=== PATIENT | female | born 1990 | race Two or more races ===

== ENCOUNTER 2020-01-24 09:47 | Inpatient (IN) | payer OTHER ==
[2020-01-26] MEDS ORDERED: Sodium Chloride 0.9% 10 ML Syringe FLUSH PRN (19:16)
[2020-01-26] MEDS ORDERED: Nalbuphine 10 MG/1 ML Vial IVPUSH PRN (19:16)
[2020-01-26] MEDS ORDERED: Ondansetron 4 MG/2 ML SDV IVPUSH PRN (19:16)
[2020-01-26] MEDS ORDERED: Calcium Carbonate 500 MG Tab.Chew PO PRN (19:16)
[2020-01-26] MEDS ORDERED: Acetaminophen 325 MG Tab PO PRN (19:16)
[2020-01-26] MEDS ORDERED: Oxytocin/Lactated Ringers 10 UNIT/1,000 ML BAG IV SCH (19:30)
[2020-01-26] MEDS ORDERED: Ampicillin 2 GM in Sodium Chloride 0.9% 100 ML IV ONE (20:00)
--- NOTE | 2020-01-26 20:10 | PCM.LDHP ---
L&D History of Present Illness - General Date of Service: 01/26/20 Admit Problem/Dx: Patient Status Order with Admit Dx/Problem 01/26/20 19:16 Patient Status [ADT] Routine Admission Diagnosis/Problem Admission Diagnosis/Problem Source of Information: Patient - History of Present Illness Introduction:: 29 year old at 40w2 here for induction of labor. PNC with myself without complications GBS positive - Related Data Allergies/Adverse Reactions: Allergies Allergy/AdvReac Type Severity Reaction Status Date / Time No Known Allergies Allergy Verified 01/26/20 19:45 Past Medical History - Past Health History Medical/Surgical History: Denies Medical/Surgical History H&P Review of Systems - Review of Systems: Review Of Systems: See Below General: Reports: No Symptoms HEENT: Reports: No Symptoms Pulmonary: Reports: No Symptoms Cardiovascular: Reports: No Symptoms Gastrointestinal: Reports: No Symptoms Genitourinary: Reports: No Symptoms Musculoskeletal: Reports: No Symptoms Skin: Reports: No Symptoms Psychiatric: Reports: No Symptoms Neurological: Reports: No Symptoms Hematologic/Lymphatic: Reports: No Symptoms Immunologic: Reports: No Symptoms L&D Exam - Exam Exam: See Below - Vital Signs Weight: 116.891 kg - OB Specific Contraction Intensity: Irritability Movement: Active Heart Tones: Present Heart Tones per Min: 145 Heart Rate (FHR) Variability: Moderate (6-25 bmp) Presentation: Vertex - Dodd Score Dodd Score Cervix Position: Posterior Dodd Score Consistency: Soft Ddod Score Effacement: 51-70% Dodd Score Dilation: 3-4 cm Dodd Score Infant's Station: -1 ,0 Dodd Score Total: 8 - Exam General: Alert, Oriented HEENT: PERRLA, Conjunctiva Clear, EACs Clear, EOMI, Hearing Intact, Mucosa Moist & [place], Nares Patent, Normal Nasal Septum, Posterior Pharynx Clear, TMs Clear Neck: Supple, Trachea Midline Lungs: Clear to Auscultation, Normal Respiratory Effort Cardiovascular: Regular Rate, Regular Rhythm GI/Abdominal Exam: Normal Bowel Sounds, Soft, Non-Tender, No Organomegaly, No Distention, No Abnormal Bruit, No Mass, Pelvis Stable Back Exam: Normal Inspection, Full Range of Motion Extremities: Normal Inspection, Normal Range of Motion, Non-Tender, No Pedal Edema, Normal Capillary Refill Skin: Warm, Dry, Intact Neurological: Cranial Nerves Intact, Reflexes Equal Bilateral Psychiatric: Alert, Normal Affect, Normal Mood - Patient Data Lab Results Last 24 hrs: Laboratory Results - last 24 hr 01/26/20 Range/Units 19:31 WBC 11.70 H (3.98-10.04) K/mm3 RBC 4.24 (3.98-5.22) M/mm3 Hgb 13.3 (11.2-15.7) gm/dl Hct 37.4 (34.1-44.9) % MCV 88.2 (79.4-94.8) fl MCH 31.4 (25.6-32.2) pg MCHC 35.6 H (32.2-35.5) g/dl RDW Std Deviation 43.2 (36.4-46.3) fL Plt Count 185 (182-369) K/mm3 MPV 10.7 (9.4-12.3) fl Neut % (Auto) 78.7 H (34.0-71.1) % Lymph % (Auto) 14.4 L (19.3-51.7) % [place] % (Auto) 5.8 (4.7-12.5) % Eos % (Auto) 0.8 (0.7-5.8) Baso % (Auto) 0.3 (0.1-1.2) % Neut # (Auto) 9.22 H (1.56-6.13) K/mm3 Lymph # (Auto) 1.68 (1.18-3.74) K/mm3 [place] # (Auto) 0.68 H (0.24-0.36) K/mm3 Eos # (Auto) 0.09 (0.04-0.36) K/mm3 Baso # (Auto) 0.03 (0.01-0.08) K/mm3 Result Diagrams: 01/26/20 19:31 Problem List Initiated/Reviewed/Updated: Yes Orders Last 24hrs: Active Orders 24 hr Category Date Time Status Patient Status [ADT] Routine ADT 01/26/20 19:16 Active Activity as Tolerated [RC] PFP Care 01/26/20 19:16 Active Communication Order [RC] ASDIRECTED Care 01/26/20 19:16 Active Heart Tones [RC] ASDIRECTED Care 01/26/20 19:17 Active Non Stress Test [RC] PER UNIT ROUTINE Care 01/26/20 19:16 Active Notify Provider [RC] PFP Care 01/26/20 19:16 Active Notify Provider [RC] PRN Care 01/26/20 19:16 Active Peripheral IV Care [RC] . DIRECTED Care 01/26/20 19:17 Active Vital Signs [RC] PER UNIT ROUTINE Care 01/26/20 19:16 Active Regular Diet [DIET] Diet 01/27/20 Breakfast Active CORONAVIRUS COVID-19 CIPRIANO [MOLEC] Stat Lab 01/26/20 19:28 Received RAPID PLASMA REAGIN,RPR [CHEM] Routine Lab 01/26/20 19:31 Received TYPE AND SCREEN [BBK] Stat Lab 01/26/20 19:31 Received Acetaminophen [TylenoL] Med 01/26/20 19:16 Active 650 mg PO Q4H PRN Ampicillin 1 gm Med 01/27/20 00:00 Active Sodium Chloride 0.9% [Normal Saline] 100 ml IV Q4H Ampicillin 2 gm Med 01/26/20 20:00 Active Sodium Chloride 0.9% [Normal Saline] 100 ml IV ONETIME Calcium Carbonate [Tums] Med 01/26/20 19:16 Active 1,000 mg PO Q2H PRN Lactated Ringers [Ringers, Lactated] 1,000 ml Med 01/26/20 19:30 Active IV ASDIRECTED Nalbuphine [Nubain] Med 01/26/20 19:16 Active 10 mg IVPUSH Q2H PRN Ondansetron [Zofran] Med 01/26/20 19:16 Active 4 mg IVPUSH Q4H PRN Oxytocin/Lactated Ringers [Pitocin in LR 10 Units/1,000 Med 01/26/20 19:30 Active ML] 10 unit in 1,000 ml IV .CONTINUOUS Oxytocin/Lactated Ringers [Pitocin in LR 10 Units/1,000 Med 01/26/20 19:30 Active ML] 10 unit in 1,000 ml IV TITRATE Sodium Chloride 0.9% [Saline Flush] Med 01/26/20 19:16 Active 10 ml FLUSH ASDIRECTED PRN Electronic Heart Tones Ext w TOCO [WOMSER] Oth 01/26/20 19:16 Ordered Routine Electronic Heart Tones Internal [WOMSER] Per Unit Oth 01/26/20 19:16 Ordered Routine Peripheral IV Insertion Adult [OM.PC] Routine Oth 01/26/20 19:16 Ordered Resuscitation Status Routine Resus Stat 01/26/20 19:16 Ordered Medication Orders Acetaminophen (Tylenol) 650 mg PO Q4H PRN PRN Reason: Pain (Mild 1-3) and fever Calcium Carbonate/Glycine (Tums) 1,000 mg PO Q2H PRN PRN Reason: Indigestion Ampicillin Sodium 2 gm/ Sodium (Chloride) 100 mls @ 200 mls/hr IV ONETIME ONE Stop: 01/26/20 20:29 Ampicillin Sodium 1 gm/ Sodium (Chloride) 100 mls @ 200 mls/hr IV Q4H SHEILA Oxytocin/Lactated Ringer's (Pitocin In Lr 10 Units/1,000 Ml) 10 unit in 1,000 mls @ 12 mls/hr IV TITRATE SHEILA; Protocol Oxytocin/Lactated Ringer's (Pitocin In Lr 10 Units/1,000 Ml) 10 unit in 1,000 mls @ 500 mls/hr IV .CONTINUOUS SHEILA Lactated Ringer's (Ringers, Lactated) 1,000 mls @ 100 mls/hr IV ASDIRECTED SHEILA Nalbuphine HCl (Nubain) 10 mg IVPUSH Q2H PRN PRN Reason: Pain Ondansetron HCl (Zofran) 4 mg IVPUSH Q4H PRN PRN Reason: Nausea/Vomiting Sodium Chloride (Saline Flush) 10 ml FLUSH ASDIRECTED PRN PRN Reason: Keep Vein Open Assessment/Plan Comment:: Term induction. GBS positive. 4/80/0. AROM clear fluid. Anticipate unless otherwise indicated. Pitocin to be initiated.
[2020-01-26] MEDS: Lactated Ringers 1,000 ML IV SCH ×3 (20:14→23:09)
[2020-01-26] MEDS: Oxytocin/Lactated Ringers 10 UNIT/1,000 ML BAG IV SCH (20:20)
[2020-01-26] MEDS ORDERED: ePHEDrine 50 MG/ML SDV IVPUSH PRN (21:31)
[2020-01-26] MEDS ORDERED: fentaNYL 100 MCG/2 ML SDV EPIDUR PRN (21:31)
[2020-01-26] MEDS ORDERED: diphenhydrAMINE 50 MG/ML SDV IVPUSH PRN (21:31)
--- NOTE | 2020-01-26 21:51 | PCM.PREANE ---
Preanesthetic Assessment - Procedure Proposed Procedure: Continuous labor epidural - Anesthesia/Transfusion/Family Hx Anesthesia History: Prior Anesthesia Without Reaction Transfusion History: No Prior Transfusion(s) - Review of Systems General: No Symptoms Pulmonary: No Symptoms Cardiovascular: No Symptoms Gastrointestinal: No Symptoms Neurological: No Symptoms Other: Reports: None - Physical Assessment Height: 1.57 m Weight: 116.891 kg ASA Class: 3 (Morbid obesity) Mental Status: Alert & Oriented x3 Airway Class: Mallampati = 2 Dentition: Reports: Normal Dentition Thyro-Mental Finger Breadths: 3 Mouth Opening Finger Breadths: 3 ROM/Head Extension: Full Lungs: Clear to Auscultation, Normal Respiratory Effort Cardiovascular: Regular Rate, Regular Rhythm - Lab Values: Laboratory Last Values WBC 11.70 K/mm3 (3.98-10.04) H 01/26/20 19:31 RBC 4.24 M/mm3 (3.98-5.22) 01/26/20 19:31 Hgb 13.3 gm/dl (11.2-15.7) 01/26/20 19:31 Hct 37.4 % (34.1-44.9) 01/26/20 19:31 MCV 88.2 fl (79.4-94.8) 01/26/20 19:31 MCH 31.4 pg (25.6-32.2) 01/26/20 19:31 MCHC 35.6 g/dl (32.2-35.5) H 01/26/20 19:31 RDW Std Deviation 43.2 fL (36.4-46.3) 01/26/20 19:31 Plt Count 185 K/mm3 (182-369) 01/26/20 19:31 MPV 10.7 fl (9.4-12.3) 01/26/20 19:31 Neut % (Auto) 78.7 % (34.0-71.1) H 01/26/20 19:31 Lymph % (Auto) 14.4 % (19.3-51.7) L 01/26/20 19:31 [place] % (Auto) 5.8 % (4.7-12.5) 01/26/20 19:31 Eos % (Auto) 0.8 (0.7-5.8) 01/26/20 19:31 Baso % (Auto) 0.3 % (0.1-1.2) 01/26/20 19:31 Neut # (Auto) 9.22 K/mm3 (1.56-6.13) H 01/26/20 19:31 Lymph # (Auto) 1.68 K/mm3 (1.18-3.74) 01/26/20 19:31 [place] # (Auto) 0.68 K/mm3 (0.24-0.36) H 01/26/20 19:31 Eos # (Auto) 0.09 K/mm3 (0.04-0.36) 01/26/20 19:31 Baso # (Auto) 0.03 K/mm3 (0.01-0.08) 01/26/20 19:31 SARS-CoV-2 RNA (CIPRIANO) Negative (NEGATIVE) 01/26/20 19:28 Blood Type B POSITIVE 01/26/20 19:31 Gel Antibody Screen Negative 01/26/20 19:31 - Allergies Allergies/Adverse Reactions: Allergies Allergy/AdvReac Type Severity Reaction Status Date / Time No Known Allergies Allergy Verified 01/26/20 19:45 - Acknowledgements Anesthesia Type Planned: Epidural Pt an Appropriate Candidate for the Planned Anesthesia: Yes Alternatives and Risks of Anesthesia Discussed w Pt/Guardian: Yes Pt/Guardian Understands and Agrees with Anesthesia Plan: Yes PreAnesthesia Questionnaire - Past Health History Medical/Surgical History: Denies Medical/Surgical History Genitourinary History: Reports: STD SAMPLE TESTER History: Reports: - Past Surgical History HEENT Surgical History: Reports: Oral Surgery - CURRENT (IN HOUSE) MEDS Current Meds: Current Medications Acetaminophen (Tylenol) 650 mg PO Q4H PRN PRN Reason: Pain (Mild 1-3) and fever Calcium Carbonate/Glycine (Tums) 1,000 mg PO Q2H PRN PRN Reason: Indigestion Diphenhydramine HCl (Benadryl) 25 mg IVPUSH Q6H PRN PRN Reason: pruritis Ephedrine Sulfate (Ephedrine Sulfate) 5 mg IVPUSH ASDIRECTED PRN PRN Reason: Hypotension Fentanyl (Sublimaze) 100 mcg EPIDUR Q3H PRN PRN Reason: Pain Fentanyl/Bupivacaine HCl (Fentanyl/Bupivacaine/Ns 2 Mcg-0.125% 100 Ml) 100 ml EPIDUR ASDIRECTED PRN PRN Reason: Pain Ampicillin Sodium 1 gm/ Sodium (Chloride) 100 mls @ 200 mls/hr IV Q4H SHEILA Oxytocin/Lactated Ringer's (Pitocin In Lr 10 Units/1,000 Ml) 10 unit in 1,000 mls @ 12 mls/hr IV TITRATE SHEILA; Protocol Last Titration: 01/26/20 21:10 Dose: 4 munits/min, 24 mls/hr Documented by: Oxytocin/Lactated Ringer's (Pitocin In Lr 10 Units/1,000 Ml) 10 unit in 1,000 mls @ 500 mls/hr IV .CONTINUOUS SHEILA Lactated Ringer's (Ringers, Lactated) 1,000 mls @ 100 mls/hr IV ASDIRECTED SHEILA Last Admin: 01/26/20 20:14 Dose: 100 mls/hr Documented by: Nalbuphine HCl (Nubain) 10 mg IVPUSH Q2H PRN PRN Reason: Pain Ondansetron HCl (Zofran) 4 mg IVPUSH Q4H PRN PRN Reason: Nausea/Vomiting Sodium Chloride (Saline Flush) 10 ml FLUSH ASDIRECTED PRN PRN Reason: Keep Vein Open Discontinued Medications Ampicillin Sodium 2 gm/ Sodium (Chloride) 100 mls @ 200 mls/hr IV ONETIME ONE Stop: 01/26/20 20:29 Last Admin: 01/26/20 20:11 Dose: 200 mls/hr Documented by:
[2020-01-26] MEDS: Bupivacaine/fentaNYL/NS 100 ML Bag EPIDUR PRN (21:56)
[2020-01-26] MEDS: Ampicillin 1 GM in Sodium Chloride 0.9% 100 ML IV SCH (23:56)
[2020-01-27] MEDS: Lactated Ringers 1,000 ML IV SCH ×3 (00:03→15:28)
[2020-01-27] MEDS: Ampicillin 1 GM in Sodium Chloride 0.9% 100 ML IV SCH ×4 (03:57→22:02)
[2020-01-27] MEDS: Bupivacaine/fentaNYL/NS 100 ML Bag EPIDUR PRN (07:08)
--- NOTE | 2020-01-27 08:29 | PCM.PNLD ---
Labor Progress Note - VS & Meds Vital Signs: Last Vital Signs Temp 37.1 C 01/26/20 19:16 Pulse 85 01/26/20 19:16 Resp 14 01/26/20 19:16 BP 139/82 01/26/20 19:16 Pulse Ox 98 01/26/20 19:16 Active Medications: Current Medications Acetaminophen (Tylenol) 650 mg PO Q4H PRN PRN Reason: Pain (Mild 1-3) and fever Calcium Carbonate/Glycine (Tums) 1,000 mg PO Q2H PRN PRN Reason: Indigestion Diphenhydramine HCl (Benadryl) 25 mg IVPUSH Q6H PRN PRN Reason: pruritis Ephedrine Sulfate (Ephedrine Sulfate) 5 mg IVPUSH ASDIRECTED PRN PRN Reason: Hypotension Fentanyl (Sublimaze) 100 mcg EPIDUR Q3H PRN PRN Reason: Pain Last Admin: 01/26/20 21:57 Dose: 100 mcg Documented by: Fentanyl/Bupivacaine HCl (Fentanyl/Bupivacaine/Ns 2 Mcg-0.125% 100 Ml) 100 ml EPIDUR ASDIRECTED PRN PRN Reason: Pain Last Admin: 01/27/20 07:08 Dose: 100 ml Documented by: Ampicillin Sodium 1 gm/ Sodium (Chloride) 100 mls @ 200 mls/hr IV Q4H SHEILA Last Admin: 01/27/20 08:01 Dose: 200 mls/hr Documented by: Oxytocin/Lactated Ringer's (Pitocin In Lr 10 Units/1,000 Ml) 10 unit in 1,000 mls @ 12 mls/hr IV TITRATE SHEILA; Protocol Last Titration: 01/27/20 08:10 Dose: 20 munits/min, 120 mls/hr Documented by: Oxytocin/Lactated Ringer's (Pitocin In Lr 10 Units/1,000 Ml) 10 unit in 1,000 mls @ 500 mls/hr IV .CONTINUOUS SHEILA Lactated Ringer's (Ringers, Lactated) 1,000 mls @ 100 mls/hr IV ASDIRECTED SHEILA Last Admin: 01/27/20 06:20 Dose: 100 mls/hr Documented by: Nalbuphine HCl (Nubain) 10 mg IVPUSH Q2H PRN PRN Reason: Pain Ondansetron HCl (Zofran) 4 mg IVPUSH Q4H PRN PRN Reason: Nausea/Vomiting Sodium Chloride (Saline Flush) 10 ml FLUSH ASDIRECTED PRN PRN Reason: Keep Vein Open Discontinued Medications Ampicillin Sodium 2 gm/ Sodium (Chloride) 100 mls @ 200 mls/hr IV ONETIME ONE Stop: 01/26/20 20:29 Last Admin: 01/26/20 20:11 Dose: 200 mls/hr Documented by: - Uterine Contractions Contraction Intensity: Irritability - Monitoring Heart Rate (FHR) Variability: Moderate (6-25 bmp) Strip Review: Category I - Vaginal Exam Dilation (cm): 6 Effacement (Percent): 80 Station: -2 Cervical Position: Midposition - Labor Progress (Free Text) Labor Progress: Term labor. IUPC placed. Doing well. Discussed if minimal progress despite adequate contractions might need .
[2020-01-27] MEDS ORDERED: Lidocaine 1.5% with EPINEPHrine 1:200,000 5 ML Amp ONE (10:00)
[2020-01-27] MEDS: Oxytocin/Lactated Ringers 10 UNIT/1,000 ML BAG IV SCH (10:08)
[2020-01-27] MEDS ORDERED: Misoprostol 200 MCG Tab ONE (14:16)
[2020-01-27] MEDS ORDERED: Lactated Ringers 1,000 ML ONE (14:32)
[2020-01-27] MEDS ORDERED: cefOXitin 1 GM in Premix Bag 1 BAG IV ONE (14:51)
--- NOTE | 2020-01-27 15:06 | PCM.SN.2 ---
- Free Text/Narrative Note: Stage I - patient presented for induction of labor. AROM clear fluid. Pitocin. Epidural for anesthesia. Progressed to complete with overall reassuring heart tones. Stage II - of viable female, weight 3300 g, 8/9 APGARS at 1407. Head delivered in controlled manner over intact perineum. Body and shoulders followed without difficulty. To maternal abdomen. Positive cry. Cord clamped and cut at 1 minute of life. Stage III - of intact placenta. 3vc. Small vaginal laceration repaired with single figure of 8 suture of 3-0 vicryl. About 10 minutes post delivery significant bleeding noted. Clot evacuated but bleeding persisted. 600 mcg cytotec placed buccally. Continued heavy bleeding. Banjo currette tolerated well. Small shaggy fragments of placenta. TXA given. Bleeding improved. EBL 1000.
[2020-01-27] MEDS ORDERED: Witch Hazel Medicated Pads 40/Jar TOP PRN (16:47)
[2020-01-27] MEDS ORDERED: Benzocaine/Menthol 20%-0.5% Spray 56 GM Canister TOP PRN (16:47)
[2020-01-27] MEDS ORDERED: Misoprostol 200 MCG Tab PO PRN (16:47)
[2020-01-27] MEDS: Ibuprofen 600 MG Tab PO PRN ×2 (17:12→23:50)
--- NOTE | 2020-01-28 07:31 | PCM.PNPP ---
- General Info Date of Service: 01/28/20 Functional Status: Reports: Pain Controlled - Review of Systems General: Reports: No Symptoms HEENT: Reports: No Symptoms Pulmonary: Reports: No Symptoms Cardiovascular: Reports: No Symptoms Gastrointestinal: Reports: No Symptoms Genitourinary: Reports: No Symptoms Musculoskeletal: Reports: No Symptoms Skin: Reports: No Symptoms Neurological: Reports: No Symptoms Psychiatric: Reports: No Symptoms - General Info Date of Service: 01/28/20 - Patient Data Vital Signs - Most Recent: Last Vital Signs Temp 36.5 C 01/28/20 03:22 Pulse 102 H 01/28/20 03:22 Resp 16 01/28/20 03:22 BP 108/46 L 01/28/20 03:22 Pulse Ox 99 01/28/20 03:22 Weight - Most Recent: 116.891 kg Lab Results - Last 24 Hours: Laboratory Results - last 24 hr 01/27/20 Range/Units 14:36 WBC 18.40 H (3.98-10.04) K/mm3 RBC 3.73 L (3.98-5.22) M/mm3 Hgb 11.6 D (11.2-15.7) gm/dl Hct 33.5 L (34.1-44.9) % MCV 89.8 (79.4-94.8) fl MCH 31.1 (25.6-32.2) pg MCHC 34.6 (32.2-35.5) g/dl RDW Std Deviation 44.1 (36.4-46.3) fL Plt Count 234 (182-369) K/mm3 MPV 10.4 (9.4-12.3) fl Neut % (Auto) 89.7 H (34.0-71.1) % Lymph % (Auto) 5.2 L (19.3-51.7) % [place] % (Auto) 4.9 (4.7-12.5) % Eos % (Auto) 0.1 L (0.7-5.8) Baso % (Auto) 0.1 (0.1-1.2) % Neut # (Auto) 16.51 H (1.56-6.13) K/mm3 Lymph # (Auto) 0.95 L (1.18-3.74) K/mm3 [place] # (Auto) 0.91 H (0.24-0.36) K/mm3 Eos # (Auto) 0.02 L (0.04-0.36) K/mm3 Baso # (Auto) 0.01 (0.01-0.08) K/mm3 Manual Slide Review Abnormal smear Med Orders - Current: Current Medications Benzocaine/Menthol (Dermoplast Pain Relief [place]) 0 gm TOP ASDIRECTED PRN PRN Reason: Perineal Comfort Measure Last Admin: 01/27/20 17:11 Dose: 1 can Documented by: Ibuprofen (Motrin) 600 mg PO Q6H PRN PRN Reason: Mild pain or fever Last Admin: 01/27/20 23:50 Dose: 600 mg Documented by: Misoprostol (Cytotec) 600 mcg PO ONETIME PRN PRN Reason: excessive vaginal bleeding Witch Que (Tucks) 1 pad TOP ASDIRECTED PRN PRN Reason: Pain Last Admin: 01/27/20 17:11 Dose: 1 container Documented by: Discontinued Medications Acetaminophen (Tylenol) 650 mg PO Q4H PRN PRN Reason: Pain (Mild 1-3) and fever Calcium Carbonate/Glycine (Tums) 1,000 mg PO Q2H PRN PRN Reason: Indigestion Diphenhydramine HCl (Benadryl) 25 mg IVPUSH Q6H PRN PRN Reason: pruritis Ephedrine Sulfate (Ephedrine Sulfate) 5 mg IVPUSH ASDIRECTED PRN PRN Reason: Hypotension Fentanyl (Sublimaze) 100 mcg EPIDUR Q3H PRN PRN Reason: Pain Last Admin: 01/26/20 21:57 Dose: 100 mcg Documented by: Fentanyl/Bupivacaine HCl (Fentanyl/Bupivacaine/Ns 2 Mcg-0.125% 100 Ml) 100 ml EPIDUR ASDIRECTED PRN PRN Reason: Pain Last Admin: 01/27/20 07:08 Dose: 100 ml Documented by: Ampicillin Sodium 2 gm/ Sodium (Chloride) 100 mls @ 200 mls/hr IV ONETIME ONE Stop: 01/26/20 20:29 Last Admin: 01/26/20 20:11 Dose: 200 mls/hr Documented by: Ampicillin Sodium 1 gm/ Sodium (Chloride) 100 mls @ 200 mls/hr IV Q4H SHEILA Last Admin: 01/27/20 22:02 Dose: Not Given Documented by: Oxytocin/Lactated Ringer's (Pitocin In Lr 10 Units/1,000 Ml) 10 unit in 1,000 mls @ 12 mls/hr IV TITRATE SHEILA; Protocol Last Admin: 01/27/20 10:08 Dose: 26 munits/min, 156 mls/hr Documented by: Oxytocin/Lactated Ringer's (Pitocin In Lr 10 Units/1,000 Ml) 10 unit in 1,000 mls @ 500 mls/hr IV .CONTINUOUS SHEILA Last Admin: 01/27/20 14:07 Dose: 500 mls/hr Documented by: Lactated Ringer's (Ringers, Lactated) 1,000 mls @ 100 mls/hr IV ASDIRECTED SHEILA Last Admin: 01/27/20 15:28 Dose: 999 mls/hr Documented by: Lactated Ringer's (Ringers, Lactated) Confirm Administered Dose 1,000 mls @ as directed .ROUTE .STK-MED ONE Stop: 01/27/20 14:33 Last Admin: 01/27/20 22:01 Dose: Not Given Documented by: Cefoxitin Sodium 1 gm/ Premix 50 mls @ 100 mls/hr IV ONETIME ONE Stop: 01/27/20 15:20 Last Admin: 01/27/20 15:25 Dose: 100 mls/hr Documented by: Misoprostol (Cytotec) Confirm Administered Dose 600 mcg .ROUTE .STK-MED ONE Stop: 01/27/20 14:17 Last Admin: 01/27/20 14:18 Dose: 600 mcg Documented by: Nalbuphine HCl (Nubain) 10 mg IVPUSH Q2H PRN PRN Reason: Pain Ondansetron HCl (Zofran) 4 mg IVPUSH Q4H PRN PRN Reason: Nausea/Vomiting Sodium Chloride (Saline Flush) 10 ml FLUSH ASDIRECTED PRN PRN Reason: Keep Vein Open Tranexamic Acid (Cyklokapron) Confirm Administered Dose 1,000 mg .ROUTE .STK-MED ONE Stop: 01/27/20 14:23 Last Admin: 01/27/20 14:28 Dose: 1,000 mg Documented by: - Infant Interaction Support Person: Significant Other - Recovery Exam Fundal Tone: Firm Fundal Level: At Umbilicus Fundal Placement: Midline Lochia Amount: Small Lochia Color: Rubra/Red Perineum Description: Other (see below) Other Perinuem Description: 1st degree with repair Bladder Status: Voiding - Exam General: Alert, Oriented HEENT: Pupils Equal Neck: Supple Lungs: Clear to Auscultation, Normal Respiratory Effort Cardiovascular: Regular Rate, Regular Rhythm GI/Abdominal Exam: Normal Bowel Sounds, Soft, Non-Tender, No Organomegaly, No Distention, No Abnormal Bruit, No Mass, Pelvis Stable Neurological: No New Focal Deficit Psy/Mental Status: Alert, Normal Affect, Normal Mood - Problem List Review Problem List Initiated/Reviewed/Updated: Yes - My Orders Last 24 Hours: My Active Orders 01/27/20 16:47 Benzocaine/Menthol [Dermoplast Pain Relief [place]] See Dose Instructions TOP ASDIRECTED PRN Ibuprofen [Motrin] 600 mg PO Q6H PRN miSOPROStoL [Cytotec] 600 mcg PO ONETIME PRN witch Que [Tucks] 1 pad TOP ASDIRECTED PRN Heat Therapy [OM.PC] PRN 01/27/20 16:47 Activity as Tolerated [RC] PER UNIT ROUTINE Vital Signs [RC] 03,09,15,21 Assess Lochia [WOMSER] Per Unit Routine Assess Uterine Involution [WOMSER] Per Unit Routine Breast Pump [WOMSER] Per Unit Routine Medication Administration Instruction [OM.PC] Routine Perineal Care [OM.PC] Per Unit Routine Sitz Bath [OM.PC] Per Unit Routine 01/28/20 07:23 CBC W/O DIFF,HEMOGRAM [HEME] Routine 01/28/20 16:47 Heat Therapy [OM.PC] PRN - Assessment Assessment:: Asymptomatic with anemia. No other issues. No fevers. No discharge today.
--- NOTE | 2020-01-28 10:35 | PCM48HPAN ---
Post Anesthesia Note - EVALUATION WITHIN 48HRS OF ANESTHETIC Vital Signs in Normal Range: Yes Patient Participated in Evaluation: Yes Respiratory Function Stable: Yes Airway Patent: Yes Cardiovascular Function Stable: Yes Hydration Status Stable: Yes Pain Control Satisfactory: Yes Nausea and Vomiting Control Satisfactory: Yes Mental Status Recovered: Yes Vital Signs: Last Vital Signs Temp 97.4 F 01/28/20 08:18 Pulse 85 01/28/20 08:18 Resp 16 01/28/20 03:22 BP 132/65 01/28/20 08:18 Pulse Ox 99 01/28/20 03:22 - COMMENTS/OBSERVATIONS Free Text/Narrative:: Patient is on her day 1. Stated understanding about possible backaches following epidural anesthesia. Mentions having some minor back soreness at this time. Explanation given about importance of avoiding back straining. Denies any headache or lightheadedness at this time. Comfortable now. Ambulating, no difficulty urinating.
[2020-01-28] MEDS: Ibuprofen 600 MG Tab PO PRN ×2 (15:10→21:40)
[2020-01-29] MEDS: Ibuprofen 600 MG Tab PO PRN (04:05)
--- NOTE | 2020-01-29 08:00 | PCM.DCSUM1 ---
Discharge Summary - Hospital Course Diagnosis: Stroke: No - Discharge Data Discharge Date: 01/29/20 Discharge Disposition: Home, Self-Care 01 Condition: Good - Referral to Home Health Primary Care Physician: Lena Polanco MD - Patient Summary/Data Hospital Course: complicated by hemorrhage. Tolerating anemia well. Discharge PPD2. - Patient Instructions Diet: Usual Diet as Tolerated Activity: No Strenuous Activities Driving: May Drive Today Showering/Bathing: May Shower Wound/Incision Care: Keep Operative Site/Wound Site Clean and Dry Notify Provider of: Fever, Increased Pain - Discharge Plan *PRESCRIPTION DRUG MONITORING PROGRAM REVIEWED*: No *COPY OF PRESCRIPTION DRUG MONITORING REPORT IN PATIENT OLIVIA: No Home Medications: Home Meds Vits #93/Iron Fum/FA [ Formula Tablet] 1 each PO DAILY 01/27/20 [History] Referrals: Lena Polanco MD [Primary Care Provider] - (2 weeks) - Discharge Summary/Plan Comment DC Time >30 min.: No - General Info Date of Service: 01/29/20 Functional Status: Reports: Pain Controlled - Review of Systems General: Reports: No Symptoms HEENT: Reports: No Symptoms Pulmonary: Reports: No Symptoms Cardiovascular: Reports: No Symptoms Gastrointestinal: Reports: No Symptoms Genitourinary: Reports: No Symptoms Musculoskeletal: Reports: No Symptoms Skin: Reports: No Symptoms Neurological: Reports: No Symptoms Psychiatric: Reports: No Symptoms - Patient Data Vitals - Most Recent: Last Vital Signs Temp 36.6 C 01/29/20 04:01 Pulse 97 01/29/20 04:01 Resp 14 01/29/20 04:01 BP 104/60 01/29/20 04:01 Pulse Ox 97 01/29/20 04:01 Weight - Most Recent: 116.891 kg I&O - Last 24 hours: Intake & Output 01/28/20 01/29/20 01/29/20 22:59 06:59 14:59 Intake Total 240 Balance 240 Lab Results - Last 24 hrs: Laboratory Results - last 24 hr 01/26/20 01/28/20 01/29/20 Range/Units 19:31 08:10 05:45 WBC 12.22 H 10.01 (3.98-10.04) K/mm3 RBC 2.87 L 2.57 L (3.98-5.22) M/mm3 Hgb 9.0 L D 8.0 L (11.2-15.7) gm/dl Hct 26.1 L 23.7 L (34.1-44.9) % MCV 90.9 92.2 (79.4-94.8) fl MCH 31.4 31.1 (25.6-32.2) pg MCHC 34.5 33.8 (32.2-35.5) g/dl RDW Std Deviation 44.1 44.7 (36.4-46.3) fL Plt Count 165 L 148 L (182-369) K/mm3 MPV 10.0 10.6 (9.4-12.3) fl Neut % (Auto) 74.1 H (34.0-71.1) % Lymph % (Auto) 17.6 L (19.3-51.7) % [place] % (Auto) 6.2 (4.7-12.5) % Eos % (Auto) 1.9 (0.7-5.8) Baso % (Auto) 0.2 (0.1-1.2) % Neut # (Auto) 7.42 H (1.56-6.13) K/mm3 Lymph # (Auto) 1.76 (1.18-3.74) K/mm3 [place] # (Auto) 0.62 H (0.24-0.36) K/mm3 Eos # (Auto) 0.19 (0.04-0.36) K/mm3 Baso # (Auto) 0.02 (0.01-0.08) K/mm3 RPR Non-reactive (NONREACTIVE) Med Orders - Current: Current Medications Benzocaine/Menthol (Dermoplast Pain Relief Ora) 0 gm TOP ASDIRECTED PRN PRN Reason: Perineal Comfort Measure Last Admin: 01/27/20 17:11 Dose: 1 can Documented by: Ibuprofen (Motrin) 600 mg PO Q6H PRN PRN Reason: Mild pain or fever Last Admin: 01/29/20 04:05 Dose: 600 mg Documented by: Misoprostol (Cytotec) 600 mcg PO ONETIME PRN PRN Reason: excessive vaginal bleeding Witch Suzette (Tucks) 1 pad TOP ASDIRECTED PRN PRN Reason: Pain Last Admin: 01/27/20 17:11 Dose: 1 container Documented by: Discontinued Medications Acetaminophen (Tylenol) 650 mg PO Q4H PRN PRN Reason: Pain (Mild 1-3) and fever Calcium Carbonate/Glycine (Tums) 1,000 mg PO Q2H PRN PRN Reason: Indigestion Diphenhydramine HCl (Benadryl) 25 mg IVPUSH Q6H PRN PRN Reason: pruritis Ephedrine Sulfate (Ephedrine Sulfate) 5 mg IVPUSH ASDIRECTED PRN PRN Reason: Hypotension Fentanyl (Sublimaze) 100 mcg EPIDUR Q3H PRN PRN Reason: Pain Last Admin: 01/26/20 21:57 Dose: 100 mcg Documented by: Fentanyl/Bupivacaine HCl (Fentanyl/Bupivacaine/Ns 2 Mcg-0.125% 100 Ml) 100 ml EPIDUR ASDIRECTED PRN PRN Reason: Pain Last Admin: 01/27/20 07:08 Dose: 100 ml Documented by: Ampicillin Sodium 2 gm/ Sodium (Chloride) 100 mls @ 200 mls/hr IV ONETIME ONE Stop: 01/26/20 20:29 Last Admin: 01/26/20 20:11 Dose: 200 mls/hr Documented by: Ampicillin Sodium 1 gm/ Sodium (Chloride) 100 mls @ 200 mls/hr IV Q4H SHEILA Last Admin: 01/27/20 22:02 Dose: Not Given Documented by: Oxytocin/Lactated Ringer's (Pitocin In Lr 10 Units/1,000 Ml) 10 unit in 1,000 mls @ 12 mls/hr IV TITRATE SHEILA; Protocol Last Admin: 01/27/20 10:08 Dose: 26 munits/min, 156 mls/hr Documented by: Oxytocin/Lactated Ringer's (Pitocin In Lr 10 Units/1,000 Ml) 10 unit in 1,000 mls @ 500 mls/hr IV .CONTINUOUS SHEILA Last Admin: 01/27/20 14:07 Dose: 500 mls/hr Documented by: Lactated Ringer's (Ringers, Lactated) 1,000 mls @ 100 mls/hr IV ASDIRECTED SHEILA Last Admin: 01/27/20 15:28 Dose: 999 mls/hr Documented by: Lactated Ringer's (Ringers, Lactated) Confirm Administered Dose 1,000 mls @ as directed .ROUTE .[facility] ONE Stop: 01/27/20 14:33 Last Admin: 01/27/20 22:01 Dose: Not Given Documented by: Cefoxitin Sodium 1 gm/ Premix 50 mls @ 100 mls/hr IV ONETIME ONE Stop: 01/27/20 15:20 Last Admin: 01/27/20 15:25 Dose: 100 mls/hr Documented by: Misoprostol (Cytotec) Confirm Administered Dose 600 mcg .ROUTE .[facility] ONE Stop: 01/27/20 14:17 Last Admin: 01/27/20 14:18 Dose: 600 mcg Documented by: Nalbuphine HCl (Nubain) 10 mg IVPUSH Q2H PRN PRN Reason: Pain Ondansetron HCl (Zofran) 4 mg IVPUSH Q4H PRN PRN Reason: Nausea/Vomiting Sodium Chloride (Saline Flush) 10 ml FLUSH ASDIRECTED PRN PRN Reason: Keep Vein Open Tranexamic Acid (Cyklokapron) Confirm Administered Dose 1,000 mg .ROUTE .STK-[facility] ONE Stop: 01/27/20 14:23 Last Admin: 01/27/20 14:28 Dose: 1,000 mg Documented by: - Exam General: Reports: Alert, Oriented HEENT: Reports: Pupils Equal, Pupils Reactive, EOMI, Mucous Membr. Moist/[place] Neck: Reports: Supple Lungs: Reports: Clear to Auscultation, Normal Respiratory Effort Cardiovascular: Reports: Regular Rate, Regular Rhythm GI/Abdominal Exam: Normal Bowel Sounds, Soft, Non-Tender, No Distention, No Abnormal Bruit, No Mass (Female) Exam: Normal Speculum Exam Rectal (Female) Exam: Normal Exam, Normal Rectal Tone Back Exam: Reports: Normal Inspection, Full Range of Motion Extremities: Normal Inspection, Normal Range of Motion, Non-Tender, No Pedal Edema, Normal Capillary Refill Skin: Reports: Warm, Dry, Intact Wound/Incisions: Reports: Healing Well Neurological: Reports: No New Focal Deficit Psy/Mental Status: Reports: Alert, Normal Affect, Normal Mood
== END 2020-01-29 10:55 | disposition home or self-care (01) | DRG 807 ==
LOC: EDSTATUS 19:00 → JD.OB 01-26 14:07 → OBSVTOIN 01-27 14:07 → JD.OB 01-27 14:08
PROVIDERS: ADMIT Obstetrics & Gynecology; ATTEND Obstetrics & Gynecology
PROC: 10E0XZZ Delivery of Products of Conception, External Approach (ICD-10-PCS; principal; 2020-01-27)
PROC: 10907ZC Drainage of Amniotic Fluid, Therapeutic from Products of Conception, Via Natural or Artificial Opening (ICD-10-PCS; 2020-01-27)
PROC: 3E033VJ Introduction of Other Hormone into Peripheral Vein, Percutaneous Approach (ICD-10-PCS; 2020-01-27)
PROC: 0HQ9XZZ Repair Perineum Skin, External Approach (ICD-10-PCS; 2020-01-27)
PROC: 3E0R3BZ Introduction of Anesthetic Agent into Spinal Canal, Percutaneous Approach (ICD-10-PCS; 2020-01-27)
PROC: 10H07YZ Insertion of Other Device into Products of Conception, Via Natural or Artificial Opening (ICD-10-PCS; 2020-01-27)
DX: O48.0 Post-term pregnancy (principal); Z37.0 Single live birth; Z3A.40 40 weeks gestation of pregnancy; O99.824 Streptococcus B carrier state complicating childbirth; O70.0 First degree perineal laceration during delivery; Z20.828 Contact with and (suspected) exposure to other viral communicable diseases
CPT/HCPCS: 01967; 36415; 51702; 59025; 59409; 85025; 85027; 86592; 86850; 86900; 86901; A9270-GY; J0290; J0694; J2590; J3010; J7050; J7120; U0002

== ENCOUNTER 2023-12-30 23:17 | Inpatient (IN) | payer OTHER ==
[2023-12-30] MEDS ORDERED: Lidocaine 1% 50 ML MDV INJECT PRN (23:42)
[2023-12-30] MEDS ORDERED: Misoprostol 200 MCG Tab BUCCAL PRN (23:42)
[2023-12-30] MEDS ORDERED: Ondansetron 4 MG/2 ML SDV IVPUSH PRN (23:42)
[2023-12-30] MEDS ORDERED: Sodium Chloride 0.9% 10 ML Syringe FLUSH PRN (23:42)
[2023-12-30] MEDS ORDERED: Nalbuphine 10 MG/1 ML Vial IVPUSH PRN (23:42)
[2023-12-31 00:07] LABS: BASOPHILS PERCENT AUTO 0.3 % (0.0-1.0); EOSINOPHILS ABSOLUTE AUTO 0.1 K/mm3 (0.0-0.4); EOSINOPHILS PERCENT AUTO 0.8 % (0.0-6.0); HEMOGLOBIN 13.5 gm/dl (12.0-16.0); IMMATURE GRAN ABSOLUTE AUTO 0.09 K/mm3 (0.00-0.05); IMMATURE GRAN PERCENT AUTO 0.7 % (0.0-0.4); LYMPHOCYTES ABSOLUTE AUTO 1.9 K/mm3 (1.0-4.8); LYMPHOCYTES PERCENT AUTO 14.8 % (24.0-44.0); MEAN CORPUSCULAR HEMOGLOBIN 30.5 pg (28.0-32.0); MEAN CORPUSCULAR HGB CONC 34.6 g/dl (32.0-36.0); MEAN PLATELET VOLUME 10.7 fl (9.4-12.3); MONOCYTES ABSOLUTE AUTO 0.8 K/mm3 (0.0-0.8); NEUTROPHILS ABSOLUTE AUTO 9.8 K/mm3 (1.8-7.7); NEUTROPHILS PERCENT AUTO 77.4 % (41.0-71.0); PLATELET COUNT,PLT 216 K/mm3 (150-400); RED BLOOD CELL COUNT 4.43 M/mm3 (4.10-5.30); WHITE BLOOD CELL COUNT,WBC 12.65 K/mm3 (3.9-11.3)
[2023-12-31 00:28] LABS: ALANINE AMINOTRANSFERASE,ALT 16 U/L (14-59); ASPARTATE AMNIOTRANSFERASE,AST 14 U/L (15-37); BLOOD UREA NITROGEN,BUN 7 mg/dL (7-18); CREATININE 0.6 mg/dL (0.55-1.02); ESTIMATED GFR 123 mL/min (>60); LACTATE DEHYDROGENASE,LDH 176 U/L (81-234); URIC ACID 4.5 mg/dL (2.6-6.0)
[2023-12-31] MEDS ORDERED: diphenhydrAMINE 50 MG/ML SDV IVPUSH PRN (00:58)
[2023-12-31] MEDS ORDERED: ePHEDrine 50 MG/ML SDV IVPUSH PRN (00:58)
[2023-12-31] MEDS: Lactated Ringers 1,000 ML IV SCH (02:00)
[2023-12-31] MEDS: Bupivacaine/fentaNYL/NS 100 ML Bag EPIDUR PRN (02:00)
[2023-12-31] MEDS: fentaNYL 100 MCG/2 ML SDV EPIDUR PRN (02:00)
[2023-12-31 03:38] LABS: CREATININE,URINE RAND 53.8 mg/dL (30.0-125.0); PROTEIN CREATININE RATIO,URINE 161.7 mg/g (0-149); PROTEIN,URINE RANDOM 8.7 mg/dL (0.0-11.8)
[2023-12-31] MEDS ORDERED: Bupivacaine 0.25% 10 ML SDV ONE (07:00)
[2023-12-31] MEDS: Calcium Carbonate 500 MG Tab.Chew PO PRN (08:43)
[2023-12-31] MEDS: Sodium Chloride 0.9% 10 ML Syringe FLUSH SCH (09:22)
[2023-12-31] MEDS: Oxytocin/0.9 % Sodium Chloride 30 UNIT/500 ML BAG IV SCH ×2 (09:25→11:44)
[2023-12-31] MEDS: Methylergonovine 0.2 MG/1 ML Amp IM PRN (11:33)
[2023-12-31] MEDS ORDERED: Docusate Sodium 100 MG Cap PO PRN (12:02)
[2023-12-31] MEDS ORDERED: Acetaminophen 325 MG Tab PO PRN (12:02)
[2023-12-31] MEDS ORDERED: Ibuprofen 800 MG Tab PO SCH (12:15)
[2023-12-31] MEDS: Benzocaine/Menthol 20%-0.5% Spray 78 GM Cannister TOP PRN (13:25)
[2023-12-31] MEDS: Witch Hazel Medicated Pads 40/Jar TOP PRN (13:25)
[2023-12-31] MEDS: Ibuprofen 800 MG Tab PO SCH (13:45)
[2024-01-01] MEDS: Sertraline 25 MG Tab PO SCH (08:59)
[2024-01-01] MEDS: Prenatal Multivitamin with Calcium/Folic Acid/Iron Tab PO SCH (08:59)
== END 2024-01-01 13:10 | disposition home or self-care (01) | DRG 807 ==
LOC: JD.OBCHECK 23:17 → JD.OB 23:24 → JD.OBCHECK 12-31 01:09 → JD.OB 12-31 01:46 → OBSVTOIN 12-31 11:10 → JD.OB 12-31 11:11
PROVIDERS: ADMIT Obstetrics & Gynecology; ATTEND Obstetrics & Gynecology
PROC: 10E0XZZ Delivery of Products of Conception, External Approach (ICD-10-PCS; principal; 2023-12-31)
PROC: 10H07YZ Insertion of Other Device into Products of Conception, Via Natural or Artificial Opening (ICD-10-PCS; 2023-12-31)
PROC: 10907ZC Drainage of Amniotic Fluid, Therapeutic from Products of Conception, Via Natural or Artificial Opening (ICD-10-PCS; 2023-12-31)
DX: O99.214 Obesity complicating childbirth (principal); Z37.0 Single live birth; Z3A.39 39 weeks gestation of pregnancy; O77.0 Labor and delivery complicated by meconium in amniotic fluid; O71.89 Other specified obstetric trauma; E66.01 Morbid (severe) obesity due to excess calories
CPT/HCPCS: 36415; 51702; 59025; 59409; 82565; 82570; 83615; 84156; 84450; 84460; 84520; 84550; 85025; 86592; A9270-GY; J0665; J2210; J3010; J3490; J7120; J7999